=== PATIENT | male | born 1985 | race Caucasian/White ===

== ENCOUNTER 2017-06-21 13:05 | Emergency (ER) | payer OTHER ==
[~2017-06-21] VITALS: Ht 170.2 cm; Wt 132.0 kg
[2017-06-21 15:12] VITALS: BP 158/98
== END 2017-06-21 15:12 | disposition home or self-care (01) ==
LOC: ED 13:05
DX: L02.01 Cutaneous abscess of face (principal); I10 Essential (primary) hypertension; E11.9 Type 2 diabetes mellitus without complications
CPT/HCPCS: J2001